=== PATIENT | female | born 1940 | race Caucasian/White ===

== ENCOUNTER → 2016-10-04 | Outpatient (CLI) | payer BC ==
[~2016-10-04] MED LIST: ACET1TAB84 PO; AMLO-110 PO; AMLO2.5T PO; ASPI81TA28 PO; ATV5X PO; CHOL100010 PO; FLUO10CA48 PO; PRMVC TOP; SIMV-151 PO
[2016-10-04 11:28] LABS: ESTIMATED AVERAGE GLUCOSE 108 mg/dl; HA1C FLAG Normal (Normal)
[2016-10-04 11:36] LABS: ALT/SGPT 25 U/L (12-78); AST/SGOT 19 U/L (15-37); BLOOD UREA NITROGEN 16 mg/dl (7-18); BUN/CREATININE RATIO 24.6 (10-20); CALCIUM 9.5 mg/dl (8.5-10.1); CARBON DIOXIDE 25 mmol/L (21-32); CHLORIDE 106 mmol/L (98-107); CHOLESTEROL 242 mg/dl (0-200); CHOLESTEROL/HDL RATIO 2.6; CREATININE 0.67 mg/dl (0.60-1.20); GLUCOSE 89 mg/dl (70-99); HDL CHOLESTEROL 92 mg/dl; POTASSIUM 3.8 mmol/L (3.5-5.1); SODIUM 141 mmol/L (136-145)
[2016-10-04 11:37] LABS: LDL CHOLESTEROL CALCULATED 120 mg/dl; TRIGLYCERIDES 149 mg/dl (0-150); VERY LOW DENSITY LIPOPROT CALC 30 mg/dl
[2016-10-10 06:50] LABS: ANTI-CENTROMERE AB <1.0 NEG AI (<1.0 NEG); ANTI-SS-A <1.0 NEG AI (<1.0 NEG); ANTI-SS-B <1.0 NEG AI (<1.0 NEG); C1 ESTERASE INHIB TC298 32 mg/dL (21-39); DNA ds CRITHIDIA NEGATIVE (NEGATIVE); MICROSOMAL AB 72 IU/ML (<9); Sm Antibody <1.0 NEG AI (<1.0 NEG)
== END | disposition home or self-care (01) ==
LOC: C.LABBC 07:47
PROVIDERS: ATTEND Internal Medicine Pulmonary Disease
DX: E55.9 Vitamin D deficiency, unspecified (principal); R73.09 Other abnormal glucose; E78.5 Hyperlipidemia, unspecified; I10 Essential (primary) hypertension; T78.3XXA Angioneurotic edema, initial encounter; X58.XXXA Exposure to other specified factors, initial encounter

== ENCOUNTER → 2016-11-05 | Outpatient (CLI) | payer BC ==
[2016-11-05 14:55] LABS: BLOOD UREA NITROGEN 18 mg/dl (7-18); BUN/CREATININE RATIO 23.4 (10-20); CALCIUM 9.2 mg/dl (8.5-10.1); CARBON DIOXIDE 28 mmol/L (21-32); CHLORIDE 103 mmol/L (98-107); CREATININE 0.76 mg/dl (0.60-1.20); GLUCOSE 94 mg/dl (70-99); POTASSIUM 3.7 mmol/L (3.5-5.1); SODIUM 141 mmol/L (136-145)
== END | disposition home or self-care (01) ==
LOC: C.LAB1850 13:09
PROVIDERS: ATTEND Internal Medicine
DX: I10 Essential (primary) hypertension (principal)

== ENCOUNTER → 2017-04-02 | Outpatient (CLI) | payer BC ==
--- NOTE | 2017-04-02 15:39 | MAMMOGRAPHY REPORT ---
BILATERAL DIGITAL SCREENING MAMMOGRAM WITH CAD: 04/02/2017 CLINICAL HISTORY: Routine screening. Patient has no complaints. TECHNIQUE: Bilateral CC and MLO views were obtained. Current study was also evaluated with a Compute r Aided Detection (CAD) system. COMPARISON: Comparison is made to exams dated: 03/20/2016 mammogram, 03/17/2015 mammogram, 03/16/2014 m ammogram, 03/10/2013 mammogram, 03/07/2012 mammogram, and 03/06/2011 mammogram - [facility]. BREAST COMPOSITION: The tissue of both breasts is heterogeneously dense, which may obscure small mas ses. FINDINGS: There are scattered stable benign-appearing round and punctate microcalcifications. Minima l vascular calcification in the breasts. No suspicious mass, architectural distortion or cluster of suspicious microcalcifications is seen. IMPRESSION: ACR BI-RADS CATEGORY 1: NEGATIVE There is no mammographic evidence of malignancy. A 1 year screening mammogram is recommended. The pa tient will receive written notification of the results. Approximately 10% of breast cancers are not detected with mammography. A negative mammographic report should not delay biopsy if a clinically suggestive mass is present. Marquita Lui M.D. ay/:04/02/2017 15:06:17 Machine Feeder Raw Stock: Elida ELY(R)(M), [facility] letter sent: Normal 1/2 BI-RADS Code: ACR BI-RADS Category 1: Negative
== END | disposition home or self-care (01) ==
LOC: C.MAMM 09:20
PROVIDERS: ATTEND Internal Medicine
DX: Z12.31 Encounter for screening mammogram for malignant neoplasm of breast (principal)

== ENCOUNTER → 2017-06-12 | Outpatient (CLI) | payer BC ==
[2017-06-12 11:27] LABS: ALT/SGPT 18 U/L (12-78); AST/SGOT 10 U/L (15-37); BLOOD UREA NITROGEN 13 mg/dl (7-18); BUN/CREATININE RATIO 21.5 (10-20); CALCIUM 9.1 mg/dl (8.5-10.1); CARBON DIOXIDE 30 mmol/L (21-32); CHLORIDE 103 mmol/L (98-107); CREATININE 0.62 mg/dl (0.60-1.20); GLUCOSE 89 mg/dl (70-99); POTASSIUM 3.9 mmol/L (3.5-5.1); SODIUM 139 mmol/L (136-145)
[2017-06-12 11:30] LABS: CHOLESTEROL 219 mg/dl (0-200); CHOLESTEROL/HDL RATIO 2.5; HDL CHOLESTEROL 87 mg/dl; LDL CHOLESTEROL CALCULATED 110 mg/dl; TRIGLYCERIDES 110 mg/dl (0-150); VERY LOW DENSITY LIPOPROT CALC 22 mg/dl
[2017-06-12 12:18] LABS: ESTIMATED AVERAGE GLUCOSE 120 mg/dl; HA1C FLAG Normal (Normal)
== END | disposition home or self-care (01) ==
LOC: C.LABBC 07:57
PROVIDERS: ATTEND Internal Medicine
DX: R73.03 Prediabetes (principal); E78.5 Hyperlipidemia, unspecified; E55.9 Vitamin D deficiency, unspecified

== ENCOUNTER → 2017-12-16 | Outpatient (CLI) | payer BC ==
[~2017-12-16] MED LIST changes: +CYM/30 PO; -FLUO10CA48 PO
[2017-12-16 11:57] LABS: HEMOGLOBIN A1C 5.7 % (4.5-5.6)
[2017-12-16 12:00] LABS: ALT/SGPT 17 U/L (12-78); AST/SGOT 10 U/L (15-37); BLOOD UREA NITROGEN 18 mg/dl (7-18); CALCIUM 9.5 mg/dl (8.5-10.1); CARBON DIOXIDE 29 mmol/L (21-32); CHOLESTEROL 206 mg/dl (0-200); GLUCOSE 94 mg/dl (70-99); POTASSIUM 3.7 mmol/L (3.5-5.1); SODIUM 137 mmol/L (136-145)
[2017-12-16 12:06] LABS: LDL CHOLESTEROL CALCULATED 101 mg/dl
== END | disposition home or self-care (01) ==
LOC: C.LABBC 07:43
PROVIDERS: ATTEND Internal Medicine
DX: R73.9 Hyperglycemia, unspecified (principal); E78.5 Hyperlipidemia, unspecified; E55.9 Vitamin D deficiency, unspecified

== ENCOUNTER 2019-06-05 08:23 | Inpatient (IN) ==
--- NOTE | 2019-05-14 08:43 | Anesthesiology Consultation ---
Date of Service May 14, 2019 History Surgery Operation Date: 06/05/19 11:30 Proposed Procedures p Left Anterior Total Hip Arthroplasty - Cricket Barrera DO Height/Weight Height: 5 ft 1 in Weight: 68.492 kg Allergies Allergy/AdvReac Type Severity Reaction Status Date / Time prednisone AdvReac Intermediate hyperactivi Verified 05/14/19 08:41 ty erythromycin base AdvReac Unknown GI symptoms Verified 05/14/19 08:41 Medications Home Medications Medication Instructions Recorded Confirmed Last Taken valsartan-hydrochlorothiazide 0.5 tab PO QAM 07/19/18 05/13/19 11/18/18 07:00 [Diovan HCT] acetaminophen [Acetaminophen Extra 1,000 mg PO Q6H PRN 10/31/18 05/13/19 11/17/18 18:00 Strength] ascorbic acid (vitamin C) [Vitamin 1 g PO QAM 10/31/18 05/13/19 11/17/18 18:00 C] duloxetine 30 mg capsule,delayed 30 mg PO QAM #90 cap 04/01/19 05/13/19 Unknown release simvastatin 20 mg tablet 20 mg PO QPM #90 tab 04/16/19 05/13/19 Unknown cholecalciferol (vitamin D3) 1,000 2,000 units PO BID cap 04/27/19 05/13/19 Unknown unit capsule lorazepam 0.5 mg tablet 0.5 mg PO DAILY PRN #30 tab 04/27/19 05/13/19 Unknown aspirin 81 mg PO Q2D 05/13/19 05/13/19 Unknown valsartan 40 mg PO QAM 05/13/19 05/13/19 Unknown Past Medical History Medical History Osteopenia Postmenopausal bleeding Neurogenic claudication due to lumbar spinal stenosis Lumbago Osteoarthritis Lumbar spinal stenosis s/p epidural steroid injections Hyperlipidemia Hypertension Anxiety Past Surgical History Surgical History S/P cataract extraction Bilateral History of lumbar surgery L3-L5 decompression H/O eye surgery Left eye muscle repair (unknown which muscle was involved) Social History Smoking Status: Never smoker Do You Dip or Chew Tobacco: No Hx Alcohol Use: Yes Alcohol type: wine alcohol intake frequency: 0-2 drinks per day Hx Substance Use: No substance use type: does not use
--- NOTE | 2019-05-14 13:23 | Anesthesiology Consultation ---
Date of Service May 14, 2019 Assessment & Plan (1) Encounter for pre-operative examination: Chart Review Chart Review: Acceptable Risk for Surgery and Patient seen in Pre Admission Testing Teaching & Discussion Instructed NPO after midnight before surgery, except medications with 15 cc of water. Medication instructions provided according to the PAT guidelines. History Surgery Operation Date: 06/05/19 11:30 Proposed Procedures p Left Anterior Total Hip Arthroplasty - Cricket Barrera DO Height/Weight Height: 5 ft 1 in Weight: 69.4 kg Allergies Allergy/AdvReac Type Severity Reaction Status Date / Time prednisone AdvReac Intermediate hyperactivi Verified 05/14/19 08:41 ty erythromycin base AdvReac Unknown GI symptoms Verified 05/14/19 08:41 Medications Home Medications Medication Instructions Recorded Confirmed Last Taken valsartan-hydrochlorothiazide 0.5 tab PO QAM 07/19/18 05/13/19 11/18/18 07:00 [Diovan HCT] acetaminophen [Acetaminophen Extra 1,000 mg PO Q6H PRN 10/31/18 05/13/19 11/17/18 18:00 Strength] ascorbic acid (vitamin C) [Vitamin 1 g PO QAM 10/31/18 05/13/19 11/17/18 18:00 C] duloxetine 30 mg capsule,delayed 30 mg PO QAM #90 cap 04/01/19 05/13/19 Unknown release simvastatin 20 mg tablet 20 mg PO QPM #90 tab 04/16/19 05/13/19 Unknown cholecalciferol (vitamin D3) 1,000 2,000 units PO BID cap 04/27/19 05/13/19 Unknown unit capsule lorazepam 0.5 mg tablet 0.5 mg PO DAILY PRN #30 tab 04/27/19 05/13/19 Unknown aspirin 81 mg PO Q2D 05/13/19 05/13/19 Unknown valsartan 40 mg PO QAM 05/13/19 05/13/19 Unknown Past Medical History Medical History Osteopenia Postmenopausal bleeding Neurogenic claudication due to lumbar spinal stenosis Lumbago Osteoarthritis Lumbar spinal stenosis s/p epidural steroid injections Hyperlipidemia Hypertension Anxiety Exercise / Class Metabolic Activity II 4-5 Yardwork/Stairs/Walk up hill (Denies CP or SOB with 1 FOS, using cane for stability.) Past Surgical History Surgical History S/P cataract extraction Bilateral History of lumbar surgery minimally invasive L3-L5 decompression: 11/18/18: MAC sedation H/O eye surgery Left eye muscle repair (unknown which muscle was involved) Past Anesthesia History No Hx of Anesthesia Complications and No Family Hx of Anesthesia Complications History of PONV No Hx of PONV and No Hx of Motion Sickness Social History Smoking Status: Never smoker Do You Dip or Chew Tobacco: No Hx Alcohol Use: Yes Alcohol type: wine alcohol intake frequency: 0-2 drinks per day Hx Substance Use: No substance use type: does not use Review of Systems Pt denies any recent chest pain, shortness of breath, palpitations, cough, fever or URI. Physical Exam Vital Signs BP: 144/79 (pt states usually 120s systolic, is very nervous today) P: 96bpm SPO2: 98% RA T: 98.1 F R: 16 ENMT Mouth: + dental restorations (few crowns); no chipped teeth and no loose teeth Thyromental Distance: > or= 3.5 Finger Breadths (3.5) Mallampati Class: II Neck normal visual inspection; neck extension not limited Respiratory normal respiratory effort Auscultation: lungs clear to auscultation bilaterally Cardiovascular Rate/Rhythm: regular rate and regular rhythm (borderline tachy) Heart Sounds: no murmur Vessels: no carotid bruit Extremities: no edema Testing Laboratory Results 05/14/19 13:34 05/14/19 13:34 PT 10.2 Seconds (9.0-12.0) 05/14/19 13:34 INR 1.0 (0.9-1.1) 05/14/19 13:34 APTT 24.5 Seconds (21.0-31.0) 05/14/19 13:34 Blood Type A Positive 05/14/19 13:34 Antibody Screen NEGATIVE 05/14/19 13:34 Electrocardiogram Date: 07/19/18 Findings: + NSR @ (66) Left axis deviation. Minimal voltage criteria for LVH, maybe normal variant. Compared with EKG of 01/17/2016, no significant change. Chest X-Ray Date: 07/19/18 Findings: + NAD Echocardiogram Date: 08/20/18 EF: 55-60% Left ventricular size, thickness and function are normal. No regional wall motion of normalities noted. Grade 1 diastolic dysfunction. No significant valvular pathology.
[2019-05-14 16:25] LABS: Basophils # (auto) 0.02 K/uL (0-0.2); Basophils % (auto) 0.3 %; Eosinophils # (auto) 0.21 K/uL (0-0.5); Eosinophils % (auto) 2.9 %; Hematocrit (blood only) 34.9 % (37-47); Hemoglobin 12.1 g/dL (12.0-16.0); Immature Granulocytes # (auto) 0.01 K/uL (0.00-0.02); Immature Granulocytes % (auto) 0.1 %; Lymphocytes # (auto) 2.37 K/uL (1.2-3.4); Lymphocytes % (auto) 32.2 %; Mean Corpuscular Hgb Conc 34.7 g/dL (32-36); Mean Corpuscular Volume 88.8 fL (80-100); Monocytes # (auto) 0.57 K/uL (0.11-0.59); Monocytes % (auto) 7.8 %; Neutrophils # (auto) 4.17 K/uL (1.4-6.5); Neutrophils % (auto) 56.7 %; Platelet Count 428 K/uL (130-400); RDW Coefficient of Variation 13.3 % (11.5-14.5); RDW Standard Deviation 43.1 fL (36.4-46.3); Red Blood Count 3.93 M/uL (4.2-5.4); White Blood Count 7.35 K/uL (4.8-10.8)
[2019-05-14 16:37] LABS: Partial Thromboplastin Ratio 0.9; Partial Thromboplastin Time 24.5 Seconds (21.0-31.0); Prothrombin Time 10.2 Seconds (9.0-12.0)
[2019-05-14 17:21] LABS: BUN Creatinine Ratio 28.4 (10-20); Calcium 9.5 mg/dl (8.5-10.1); Creatinine Clr Calc Pharmacy 52.8 ml/min; Est GFR (African American) 85.1; Est GFR (Non-African American) 73.4; Potassium 3.4 mmol/L (3.5-5.1)
--- NOTE | 2019-06-05 06:31 | History & Physical Report ---
Date of Service June 05, 2019 Assessment & Plan (1) Osteoarthritis of left hip: We will proceed with a left anterior total hip arthroplasty. Postoperatively she will be placed on aspirin for DVT prophylaxis. She will be kept overnight in the hospital for postoperative medical management. She plans to use energy physical therapy upon discharge. Present on Admission?: Yes History of Present Illness Chief Complaint: Primary osteoarthritis of the left hip Primary Care Provider: Vitaly Armenta MD Azalia is a pleasant 78-year-old female who is been dealing with chronic increasing left hip and groin pain. X-rays and clinical examination have been diagnostic for severe osteoarthritis of the left hip. She uses a cane because of her left hip pain. She has trouble walking any long distances. After extensive discussions in the office, she has elected to proceed with a left total hip arthroplasty. Allergies Allergy/AdvReac Type Severity Reaction Status Date / Time prednisone AdvReac Intermediate hyperactivi Verified 05/14/19 08:41 ty erythromycin base AdvReac Unknown GI symptoms Verified 05/14/19 08:41 Home Medications Home Medications Medication Instructions Recorded Confirmed Type valsartan-hydrochlorothiazide 0.5 tab PO QAM 07/19/18 05/13/19 History [Diovan HCT] acetaminophen [Acetaminophen Extra 1,000 mg PO Q6H PRN 10/31/18 05/13/19 History Strength] ascorbic acid (vitamin C) [Vitamin 1 g PO QAM 10/31/18 05/13/19 History C] duloxetine 30 mg capsule,delayed 30 mg PO QAM #90 cap 04/01/19 05/13/19 Rx release simvastatin 20 mg tablet 20 mg PO QPM #90 tab 04/16/19 05/13/19 Rx cholecalciferol (vitamin D3) 1,000 2,000 units PO BID cap 04/27/19 05/13/19 History unit capsule lorazepam 0.5 mg tablet 0.5 mg PO DAILY PRN #30 tab 04/27/19 05/13/19 History aspirin 81 mg PO Q2D 05/13/19 05/13/19 History valsartan 40 mg PO QAM 05/13/19 05/13/19 History Past Med/Surg History Medical History Osteopenia Postmenopausal bleeding Neurogenic claudication due to lumbar spinal stenosis Lumbago Osteoarthritis Lumbar spinal stenosis s/p epidural steroid injections Hyperlipidemia Hypertension Anxiety Surgical History S/P cataract extraction Bilateral History of lumbar surgery minimally invasive L3-L5 decompression: 11/18/18: MAC sedation H/O eye surgery Left eye muscle repair (unknown which muscle was involved) Social History Preferred Language: Indonesian Communication Ability: Effective Visual Impairment: No Limitations Hearing Ability: Normal 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 Second Required: No Beliefs That Will Affect Care: None marital status: Current Living Situation: Spouse current occupational status: retired Feels Safe at Home: Yes Smoking Status: Never smoker Second Hand Exposure: No ; Hx Alcohol Use: Yes Alcohol type: wine Hx Substance Use: No Seatbelt Use: always Review of Systems All systems reviewed & are unremarkable except as noted in HPI & below Physical Exam Constitutional: WD/WN, vitals as above Eyes: PERRL, conjunctivae normal, anicteric sclerae ENMT: external ear and nose normal, oropharynx normal Neck: trachea midline, no thyromegaly Respiratory: normal respiratory effort Cardiovascular: RRR, no murmur, no edema Gastrointestinal (Abdomen): normal bowel sounds, soft, nontender, no hepatosplenomegaly Musculoskeletal: Physical examination of the left hip reveals decreased range of motion with flexion, internal and external rotation. There is significant groin pain with forced internal rotation of the hip his leg lengths are essentially equal. Psychiatric: A+Ox3, euthymic affect Results & Data Diagnostic Findings Radiographs of the left hip and pelvis demonstrate advanced osteoarthritis with joint space narrowing osteophyte formation and [id number] articulation.
[~2019-06-05 08:23] MED LIST changes: -ACET1TAB84 PO; +ACETAMINOPHEN 500 MG TAB PO SCH; -AMLO-110 PO; -AMLO2.5T PO; -ASPI81TA28 PO; -ATV5X PO; +BUPIVACAINE 0.5 % 5 MG/1 ML PF 10ML VIAL ONE; +CEFAZOLIN 1000MG 1,000 MG/7.5 ML SYR IV SCH; -CHOL100010 PO; -CYM/30 PO; +FAMOTIDINE 20 MG TAB PO SCH; +GABAPENTIN 300 MG CAP PO SCH; +LIDOCAINE HCL 2% 2 ML VIAL/AMP(20MG/ML) INFIL ONE; +LR 500ML BOLUS, THEN 15ML/HR IV SCH; +LR 60ML/HR IV SCH; +MIDAZOLAM HCL 1 MG/ML 2ML VIAL ONE; -PRMVC TOP; +PROPOFOL IV EMULSION 10 MG/ML 20 ML VIAL IV ONE; +ROPIVACAINE 0.5% HCL/PF 150 MG, BUPIVACAINE 0.5% MPF 30 ML, EPINEPHrine 30MG/30ML (OR U... INFIL SCH; -SIMV-151 PO; +TRANEXAMIC ACID 1,000 MG **IV Intra-op IV SCH; +TRANEXAMIC ACID 1,000 MG **IV Pre-op IV SCH; +fentaNYL citrate 100 MCG/2 ML VIAL ONE
--- NOTE | 2019-06-05 08:29 | History & Physical Bridge Note ---
Date of Service June 05, 2019 History & Physical Bridge Note I have examined the patient, reviewed the History & Physical and in the interval since the performance of the History & Physical I have noted the following changes of clinical significance: no changes noted
[2019-06-05] MEDS ORDERED: ORTHO JOINT ANESTHETIC ONE (08:56)
[2019-06-05] MEDS ORDERED: ONDANSETRON INJ 2 MG/ML 2 ML VIAL IV PRN ×2 (10:06→13:08)
[2019-06-05] MEDS ORDERED: ATROPINE SULFATE 0.1 MG/ML 10ML SYR IV PRN (10:06)
[2019-06-05] MEDS ORDERED: ePHEDrine sulfate 50 MG/ML AMP IV PRN (10:06)
[2019-06-05] MEDS ORDERED: HYDROmorphone INJ 1 MG/ML SYRINGE IV PRN (10:06)
[2019-06-05] MEDS ORDERED: fentaNYL citrate 100 MCG/2 ML VIAL IV PRN (10:06)
[2019-06-05] MEDS ORDERED: GLYCOPYRROLATE 0.2 MG/ML VIAL ONE (10:29)
[2019-06-05] MEDS ORDERED: ROCURONIUM BROMIDE 10 MG/ML 5 ML VIAL ONE (10:29)
[2019-06-05] MEDS ORDERED: HYDROmorphone INJ 2 MG/ML SYR/VIAL ONE (10:29)
[2019-06-05] MEDS ORDERED: DEXAMETHASONE SOD INJ 4 MG/ML VIAL ONE (10:29)
[2019-06-05] MEDS ORDERED: NEOSTIGMINE METHYLSULFATE 5 MG/5 ML SYR ONE (10:29)
[2019-06-05] MEDS ORDERED: ONDANSETRON INJ 2 MG/ML 2 ML VIAL ONE (10:29)
[2019-06-05] MEDS ORDERED: ePHEDrine sulfate 50 MG/ML SYR ONE (10:33)
[2019-06-05] MEDS ORDERED: PHENYLEPHRINE 100MCG/ML 5ML SYR ONE (10:33)
--- NOTE | 2019-06-05 11:28 | Operative Report ---
Post Operative Report Pre & Post Diagnosis Operation Date: 06/05/19 10:20 Pre-Op Diagnosis: Left Hip Primary Osteoarthritis Post-Op Diagnosis: Left Hip Primary Osteoarthritis Procedure Operation Date: 06/05/19 10:20 Actual Procedures p Left Anterior Total Hip Arthroplasty--Uncemented(Left) - Cricket Barrera DO Surgeon Cricket Barrera DO Wind Operations Supervisor Cricket Carr PAC Estimated Blood Loss 200 Findings Consistent with Post-Op Diagnosis Specimens Left femoral head Complications none Disposition Disposition: Recovery Room Indications Patient is a pleasant 78-year-old female who presented my office with chronic increasing left hip pain. X-rays and clinical examination were diagnostic for advanced osteoarthritis of the left hip. After failing conservative treatment, she elected to proceed with a left anterior total hip arthroplasty. Description of Procedure Implants used Biomet Taperloc total hip arthroplasty system with a size 8 high offset Taperloc stem, a 52 mm G7 cup with a 25mm screw, an E1 polyethylene liner, a 36 mm ceramic head with a -3 neck. Patient arrived at the hospital for the above procedure. They were seen in the preoperative holding area and the operative extremity was identified and signed. They were given a spinal anesthetic. They were given a preoperative antibiotic and TXA. They were taken back To the operating room and laid on the table in the supine position. The leg was brought out through a Puristst leg positioner. The hip was then prepped and draped in sterile fashion. A timeout was done and the patient in upper extremities properly identified. An anterior approach was used. Dissection was taken down through the fascia and the tensor muscle belly was retracted laterally and the rectus was retracted medially. The circumflex vessels were identified and ligated. The capsule was then incised and tagged for later repair. The femoral neck was then cut and the femoral head was removed. The acetabulum was exposed. Time was spent doing a complete circumferential labral release. Sequential reaming of the acetabulum up to a size 51 reamer was done. Final reamings were done under fluoroscopy to ensure appropriate version. A Biomet 52 mm G7 cup was then impacted into place. A single 25 mm screw was placed. The E1 polyethylene liner was then snapped into place. Surrounding soft tissues were then injected with 100 cc of an orthopedic pain control cocktail. The proximal femur was then exposed. Sequential broaching up to a size 8 broach was done. Off that broach a size 36 head with a -3 neck was trialed. The hip was reduced and fluoroscopic images showed anatomic alignment of the implants in acceptable length. The broach was removed. The final size 8 high offset Taperloc stem was then impacted into place. A ceramic 36 mm head with a -3 neck was then impacted into place in the hip was reduced. Final fluoroscopic images showed anatomic reduction of the hip. The capsule was then closed with #1 Vicryl suture. A dilute betadyne lavage was then done for 3 minutes. The joint was then irrigated with normal saline solution. The fascia was closed with #1 PDS suture. Skin was closed with 2-0 Vicryl, parker, and a Nikky VAC dressing. The patient was then transferred to a hospital bed and taken to the post anesthesia care unit in stable condition. They tolerated the procedure well. I attest to the content of the Intraoperative Record and any orders documented therein. Any exceptions are noted below.
--- NOTE | 2019-06-05 11:50 | Fluoroscopy Report ---
INTRAOPERATIVE RADIOGRAPHS CLINICAL HISTORY: Left hip arthroplasty. Fluoroscopy time: 25 seconds. FINDINGS: 2 spot fluoroscopic views of the left hip from an arthroplasty procedure are presented. The initial image shows surgical absence of the left femoral head with the acetabular cup in place. This is transfixed by a single cortical lag screw. The second image shows a left hip arthroplasty in near anatomic alignment. There is no evidence of fracture on these fluoroscopic views. IMPRESSION: Intraoperative images from a left hip arthroplasty procedure as above. Electronically signed by: Adolph Martinez M.D. 06/05/2019 11:48 AM
--- NOTE | 2019-06-05 12:23 | XRay Report ---
XR hip 1V LT w pelvis CLINICAL HISTORY: IN PACU - A/P PELVIS and LATERAL HIP COMPARISON: 04/10/2019 DISCUSSION: Anatomic alignment posttotal left hip arthroplasty. Could contact between prosthetic and underlying bone. Expected soft tissue postoperative change IMPRESSION: Anatomic alignment posttotal left hip arthroplasty. The above report was generated using voice recognition software. It may contain grammatical, syntax or spelling errors. Electronically signed by: Jona James M.D. 06/05/2019 12:22 PM
--- NOTE | 2019-06-05 12:51 | Anesthesiology Progress Note ---
Date of Service June 05, 2019 Anesthesia Post Procedure Vital Signs Vital Signs: Temp Pulse Pulse Resp BP Pulse Ox 06/05/19 12:45 79 15 111/52 L 100 06/05/19 12:30 36.3 C L 69 14 112/54 L 100 06/05/19 12:20 75 15 110/52 L 100 06/05/19 12:10 76 12 105/56 L 100 06/05/19 12:00 36.6 C 78 21 107/49 L 97 06/05/19 09:16 36.7 C 88 18 168/84 H 98 Pain Intensity Left Hip: Pain Intensity: 0 Transfer of Care Handoff Completed per policy Notes Mental Status: alert / awake / arousable Patient Amnestic to Procedure: Yes Nausea / Vomiting: adequately controlled Pain: adequately controlled Airway Patency, RR, SpO2: stable & adequate BP & HR: stable & adequate Hydration State: stable & adequate Anesthetic Complications: no major complications apparent
[2019-06-05] MEDS ORDERED: OXYCODONE HCL IR 5 MG TAB (IMMEDIATE RELEASE) PO PRN (13:08)
[2019-06-05] MEDS ORDERED: BISACODYL 10 MG SUPP PR PRN (13:08)
[2019-06-05] MEDS ORDERED: HYDROmorphone INJ 0.5 MG/0.5 ML SYR IV PRN (13:08)
[2019-06-05] MEDS ORDERED: METOCLOPRAMIDE HCL INJ 5 MG/ML 2 ML VIAL IV PRN (13:08)
[2019-06-05] MEDS ORDERED: NALOXONE HCL 0.4 MG/1 ML VIAL/CARP IV PRN (13:08)
[2019-06-05] MEDS ORDERED: MAGNESIUM HYDROXIDE SUSP 30 ML UDC PO PRN (13:08)
[2019-06-05] MEDS: SODIUM CHLORIDE 0.9% 1000ML 1,000 ML IV SCH (14:16)
[2019-06-05] MEDS: KETOROLAC TROMETHAMINE 15 MG/ML VIAL IV SCH ×2 (14:16→21:42)
[2019-06-05] MEDS: ACETAMINOPHEN 500 MG TAB PO SCH ×2 (14:16→21:42)
[2019-06-05] MEDS: CEFAZOLIN 2000MG 2,000 MG/15 ML SYR IV SCH (18:33)
[2019-06-05] MEDS ORDERED: SIMVASTATIN 20 MG TAB PO SCH (21:00)
[2019-06-05] MEDS ORDERED: SENNA 8.6 MG TAB PO SCH (21:00)
[2019-06-05] MEDS: DOCUSATE SODIUM 100 MG CAP PO SCH (21:42)
[2019-06-06] MEDS: SODIUM CHLORIDE 0.9% 1000ML 1,000 ML IV SCH (00:30)
[2019-06-06] MEDS: KETOROLAC TROMETHAMINE 15 MG/ML VIAL IV SCH ×2 (02:25→08:49)
[2019-06-06] MEDS: CEFAZOLIN 2000MG 2,000 MG/15 ML SYR IV SCH (02:26)
[2019-06-06 06:02] LABS: Hematocrit (blood only) 28.3 % (37-47); Hemoglobin 9.8 g/dL (12.0-16.0); Immature Granulocytes # (auto) 0.03 K/uL (0.00-0.02); Immature Granulocytes % (auto) 0.3 %; Lymphocytes # (auto) 1.26 K/uL (1.2-3.4); Lymphocytes % (auto) 11.2 %; Mean Corpuscular Hgb Conc 34.6 g/dL (32-36); Mean Corpuscular Volume 89.8 fL (80-100); Mean Platelet Volume 8.3 fL (7.4-10.4); Monocytes # (auto) 0.86 K/uL (0.11-0.59); Monocytes % (auto) 7.6 %; Neutrophils # (auto) 9.14 K/uL (1.4-6.5); Neutrophils % (auto) 80.9 %; Platelet Count 293 K/uL (130-400); RDW Coefficient of Variation 13.7 % (11.5-14.5); RDW Standard Deviation 44.8 fL (36.4-46.3); Red Blood Count 3.15 M/uL (4.2-5.4); White Blood Count 11.29 K/uL (4.8-10.8)
[2019-06-06] MEDS: ACETAMINOPHEN 500 MG TAB PO SCH (06:21)
[2019-06-06 06:33] LABS: BUN Creatinine Ratio 30.3 (10-20); Calcium 8.3 mg/dl (8.5-10.1); Creatinine Clr Calc Pharmacy 53.8 ml/min; Est GFR (African American) 87.9; Est GFR (Non-African American) 75.8
[2019-06-06] MEDS: DOCUSATE SODIUM 100 MG CAP PO SCH (08:50)
[2019-06-06] MEDS ORDERED: VALSARTAN 80 MG TAB PO SCH (09:00)
[2019-06-06] MEDS ORDERED: DULOXETINE HCL 30 MG CAP PO SCH (09:00)
[2019-06-06] MEDS ORDERED: hydroCHLOROthiazide 25 MG TAB PO SCH (09:00)
[2019-06-06] MEDS ORDERED: MULTIVITAMIN TAB PO SCH (09:00)
[2019-06-06] MEDS ORDERED: VALSARTAN/HCTZ 80/12.5MG TAB PO SCH (09:00)
--- NOTE | 2019-06-06 09:20 | Orthopedic Progress Note ---
Date of Service June 06, 2019 Assessment & Plan (1) Osteoarthritis of left hip: Overall she is doing very well. She is not having much pain in the left hip. She has been up and ambulating already. She will be seen by physical therapy today for ambulation and range of motion exercises. She can be discharged home later today. She will follow-up with orthopedics in 2 weeks. Present on Admission?: Yes Andrzej Vieyra was seen and examined at bedside this morning. Overall she is doing very well. She is not having much pain in the left hip. She has been happy with her progress. She has no complaints. Physical Exam Musculoskeletal: Physical examination of the left hip, the Nikky VAC dressing is intact. Leg lengths are equal. She is active dorsiflexion and plantarflexion of her left ankle. Results & Data Vital Signs (Past 12 Hours) Vital Signs Temp Pulse Resp BP Pulse Ox 06/06/19 08:15 36.6 C 79 18 113/70 97 06/06/19 02:46 36.6 C 83 16 103/63 93 06/05/19 22:54 36.7 C 107 H 18 105/61 95 Laboratory Results H & H 05/14/19 06/06/19 Range/Units 13:34 05:45 Hgb 12.1 9.8 L (12.0-16.0) g/dL Hct 34.9 L 28.3 L (37-47) % Coagulation 05/14/19 Range/Units 13:34 INR 1.0 (0.9-1.1) Diagnostic Findings On postoperative x-rays of her left hip, the prosthesis is in anatomic alignment without any evidence of fracture, dislocation, or loosening. PG Care Time/CCT Total # of Minutes Spent Total Time Spent with Patient: Total time spent is greater than 50% in coordination of care (as documented) at patient's floor/unit and/or counseling patient:
--- NOTE | 2019-06-06 09:21 | Discharge Summary ---
Date of Service June 06, 2019 Admission HPI Per Admitting Provider Azalia is a pleasant 78-year-old female who is been dealing with chronic increasing left hip and groin pain. X-rays and clinical examination have been diagnostic for severe osteoarthritis of the left hip. She uses a cane because of her left hip pain. She has trouble walking any long distances. After extensive discussions in the office, she has elected to proceed with a left total hip arthroplasty. Principal Diagnosis Left total hip arthroplasty Discharge Data Allergies Allergy/AdvReac Type Severity Reaction Status Date / Time prednisone AdvReac Intermediate hyperactivi Verified 06/05/19 08:45 ty erythromycin base AdvReac Unknown GI symptoms Verified 06/05/19 08:45 Consultations 06/06/19 08:00 Consult Case Management - Discharge Planning Routine Procedures Performed Operation Date: 06/05/19 10:20 Actual Procedures p Left Anterior Total Hip Arthroplasty--Uncemented(Left) - Cricket Barrera, Ordered Studies 06/05/19 10:20 FL fluoroscopy <1hr Routine FL hip LT 1V Routine Hospital Course (1) Osteoarthritis of left hip: On June 05, 2019 for a arrived at [facility] and underwent a left anterior total hip arthroplasty without complication. She had a general anesthetic. Postoperatively she was started on aspirin for DVT prophylaxis and discharged to general orthopedic floors. Her hospital course was uneventful. On postop day #1 her H&H was stable and her pain was well controlled. She was able to ambulate well with physical therapy. She was then discharged home. She will follow-up with orthopedics in 2 weeks. Total Time Total Time Spent Total Time Spent (In Minutes): 20 Discharge Plan Discharge Items Patient Disposition: Home - Home Health Services Reason For Visit: Left Hip Degenerative Joint Disease Discharge Diagnosis: Left total hip arthroplasty Activity: As commented below Non-emergency contact: Surgeon Call non-emergency contact if: your wound has increased redness and your wound has increased drainage Follow-up/Referrals: Pro,Vitaly Cardona MD [Primary Care Provider] - Diet: Regular Addtl Attending Provider Instructions: Activity and Therapy Recommendations: * If you are using [facility] then therapy will be provided at your home until they feel you have accomplished all of your goals. * If you are using [facility] then Physical Therapy will be provided until they feel you are ready to start Outpatient Physical Therapy. * If you are not using home therapy then Outpatient Physical Therapy should start about 3-5 days from your day of surgery. Therapy will last about 6-10 weeks * You were shown a series of exercises in the hospital. Do these exercises three times each day including the exercises you were shown in physical therapy. * Get up and walk several times each day.~ For the first four weeks, try not to stand or walk for more than one hour at a time. If you do stand or walk for more than one hour, you will not hurt anything, but your leg will likely swell.~~ * As you feel comfortable, you may change from the walker or crutches to a cane and~then to independent walking. Medications: * Narcotic You will likely be sent home from the hospital with a prescription for the narcotic pain medication that worked best throughout your stay. * Aspirin Most patients will be required to take Aspirin 81mg twice a day for 6 weeks after surgery. This is obtained [id number] and a prescription is not necessary. * Other medications may be prescribed for specific circumstances. If you have any questions, please call the office at . * Resume previous home medications unless otherwise instructed TEDs/Elastic Stockings: The white elastic stockings help limit swelling and prevent blood clots from forming in your legs. The more you wear them, the more they work. Wear them for six weeks. Dressing Care: You will likely have a purple VAC dressing after surgery. This dressing will keep the incision dry and promote early healing. After about 7 days the batteries will wear out and the VAC will lose suction. Simply remove the dressing at that time and throw everything away, including the small suction machine. Then, you may leave the parker open to air or cover them with a dry dressing so they do not rub on your pants. The parker will be removed at your 2 week follow-up appointment. Showering: You may shower immediately with the purple VAC dressing. Let the shower spray hit your opposite side and slowly pat the plastic dry. Do not soak the dressing. After the dressing is removed you may shower normally with the parker exposed. Let soapy water run over the parker and pat them dry. Things To Watch For: * Drainage from the incision site that occurs more than one week after your surgery. * Increased redness at the incision site. * Fever above 102 degrees Fahrenheit. * Unusual chest pain or shortness of breath. * Call [facility] at with any of the above problems Follow-Up Visit: Follow-up with Dr. Barrera 2-3 weeks after your day of surgery. An appointment was probably scheduled when you signed-up for surgery in the office. If you have any questions call Office Instructions: More detailed instructions as well as Frequently Asked Questions were provided in a folder by our office when you signed-up for surgery. Please review these instructions when you get home. If you have any further questions or concerns, please feel free to call the office at [phone] Pending Studies at Discharge: No Stand-Alone Forms: My [facility] Medications and DC Order Prescriptions: New hydrocodone-acetaminophen 5-325 mg tablet 1 tab PO Q6H PRN (Reason: pain) Qty: 20 RF: 0 Continued duloxetine [Cymbalta] 30 mg capsule,delayed release(DR/EC) 30 mg PO QAM Qty: 90 RF: 0 simvastatin [Zocor] 20 mg tablet 20 mg PO QPM Qty: 90 RF: 3 cholecalciferol (vitamin D3) 1,000 unit capsule 2,000 units PO BID RF: 0 lorazepam 0.5 mg tablet 0.5 mg PO DAILY PRN (Reason: anxiety) Qty: 30 RF: 0 ascorbic acid (vitamin C) [Vitamin C] 1,000 mg Tablet 1 g PO QAM RF: 0 acetaminophen [Acetaminophen Extra Strength] 500 mg Tablet 1,000 mg PO Q6H PRN (Reason: Pain) RF: 0 valsartan 40 mg tablet 20 mg PO DAILY RF: 0 valsartan-hydrochlorothiazide [Diovan HCT] 80-12.5 mg Tablet 1 tab PO QAM RF: 0 Changed aspirin 81 mg Tablet,Delayed Release (Dr/Ec) 81 mg PO BID Qty: 0 RF: 0 Discharge Orders: Discharge Order (Routine); Ordered 06/06/19 Ordered By: Cricket Barrera Admission Data Admit Date/Time: 06/05/19 11:54 Attending Provider: Cricket Barrera Admit Provider: Cricket Barrera Primary Care Provider: Vitaly Armenta
== END 2019-06-06 12:03 | disposition home or self-care (01) | DRG 470 ==
LOC: ASU 08:23 → 3E 11:54

== ENCOUNTER 2020-04-29 05:17 | Observation (INO) ==
--- NOTE | 2020-04-12 16:36 | PAT Medication Instructions ---
Medication Instructions Date of Service April 12, 2020 Home Medications Medication Instructions Recorded duloxetine 30 mg capsule,delayed 30 mg PO QAM #90 cap 10/06/19 release valsartan 80 mg tablet 80 mg PO DAILY #60 tab 12/10/19 lorazepam 0.5 mg tablet 0.5 mg PO DAILY PRN #30 tab 12/18/19 simvastatin 20 mg tablet 20 mg PO QPM #90 tab 04/05/20 acetaminophen [Acetaminophen Extra Strength] 1,000 mg PO Q6H PRN ascorbic acid (vitamin C) [Vitamin C] 1 g PO QAM duloxetine 30 mg capsule,delayed release 30 mg PO QAM aspirin 81 mg tablet,delayed release 81 mg PO QAM cholecalciferol (vitamin D3) 25 mcg (1,000 unit) capsule 1,000 units PO BID valsartan 80 mg tablet 80 mg PO DAILY lorazepam 0.5 mg tablet 0.5 mg PO DAILY PRN simvastatin 20 mg tablet 20 mg PO QPM DO NOT take the morning of surgery acetaminophen [Acetaminophen Extra Strength] 1,000 mg PO Q6H PRN ascorbic acid (vitamin C) [Vitamin C] 1 g PO QAM cholecalciferol (vitamin D3) 25 mcg (1,000 unit) capsule 1,000 units PO BID valsartan 80 mg tablet 80 mg PO DAILY Take morning of surgery With a small sip of water, OTHERWISE NOTHING TO EAT OR DRINK AFTER MIDNIGHT: duloxetine 30 mg capsule,delayed release 30 mg PO QAM aspirin 81 mg tablet,delayed release 81 mg PO QAM lorazepam 0.5 mg tablet 0.5 mg PO DAILY PRN (if needed) Take evening before surgery acetaminophen [Acetaminophen Extra Strength] 1,000 mg PO Q6H PRN (if needed) cholecalciferol (vitamin D3) 25 mcg (1,000 unit) capsule 1,000 units PO BID lorazepam 0.5 mg tablet 0.5 mg PO DAILY PRN (if needed) simvastatin 20 mg tablet 20 mg PO QPM Other Notes If you have any questions please call us at [phone] or [phone] or [phone] or [phone]
--- NOTE | 2020-04-13 10:18 | Anesthesiology Consultation ---
Date of Service April 13, 2020 Assessment & Plan (1) Encounter for pre-operative examination: COVID Status: As of 04/13 assessment, patient denies travel to endemic area, known exposure/sick contacts, or symptoms of COVID19. Patient instructed that they and their household members must follow strict social distancing guidelines, wear a mask in public and avoid travel for 14 days prior to surgery. Preoperative COVID19 testing to be completed prior to surgery per surgeon's arrangements. Patient made aware to self-isolate as much as possible between COVID testing and surgery. Cardiology office visit 02/09/20 = "79-year-old generally healthy woman with history of recurrent syncope, with circumstances highly suggestive of vasovagal syncope (all episodes occurred while she was on the commode), who is now doing well after discontinuation of her diuretic and reduction in her Cymbalta dosing. She will further reduce Cymbalta from every other day to 3 times a week, with a goal to eventually taper off. Fortunately, her blood pressure is normotensive (b ased on home diary) on valsartan long, she does not need the diuretic component (had previously been on combination valsartan/HCTZ)." Patient had GA for prior STEPHEN (no indication of reason on eval, but patient was 7 months s/p MILD procedure; she recalls being told she should not have spinal block). Discussed risks and benefits of spinal vs general anesthesia. Pt aware will be discussed further AM DOS. Chart Review Chart Review: Acceptable Risk for Surgery and Patient seen in Pre Admission Testing Teaching & Discussion Instructed NPO after midnight before surgery, except medications with 15 cc of water. Medication instructions provided according to the PAT guidelines. History Surgery Operation Date: 04/29/20 07:00 Proposed Procedures p Right Anterior Total Hip Arthroplasty - Cricket Barrera, Height/Weight Height: 5 ft 1 in Weight: 64.3 kg Allergies Allergy/AdvReac Type Severity Reaction Status Date / Time prednisone AdvReac Intermediate hyperactivi Verified 04/06/20 07:59 ty erythromycin base AdvReac Mild GI symptoms Verified 04/06/20 07:59 Medications Home Medications Medication Instructions Recorded Confirmed Last Taken acetaminophen [Acetaminophen Extra 1,000 mg PO Q6H PRN 10/31/18 04/06/20 06/04/19 18:00 Strength] ascorbic acid (vitamin C) [Vitamin 1 g PO QAM 10/31/18 04/06/20 06/04/19 18:00 C] duloxetine 30 mg capsule,delayed 30 mg PO QAM #90 cap 10/06/19 04/06/20 Unknown release aspirin 81 mg tablet,delayed 81 mg PO QAM tab 11/24/19 04/06/20 Unknown release cholecalciferol (vitamin D3) 25 1,000 units PO BID cap 11/24/19 04/06/20 Unknown mcg (1,000 unit) capsule valsartan 80 mg tablet 80 mg PO DAILY #60 tab 12/10/19 04/06/20 Unknown lorazepam 0.5 mg tablet 0.5 mg PO DAILY PRN #30 tab 12/18/19 04/06/20 Unknown simvastatin 20 mg tablet 20 mg PO QPM #90 tab 04/05/20 04/06/20 Unknown Past Medical History Medical History Anxiety Hyperlipidemia Hypertension Lumbago Lumbar spinal stenosis s/p epidural steroid injections and MILD procedure 11/18/18; no injections since Neurogenic claudication due to lumbar spinal stenosis Osteoarthritis Osteopenia Postmenopausal bleeding Varicose veins of both lower extremities (Inactive) Vasovagal syncope Follows with cardio, diuretic was d/c'd, BP has been stable on Valsartan. Exercise / Class Metabolic Activity II 4-5 Yardwork/Stairs/Walk up hill (Denies CP or SOB with 1 FOS, does not do regularly though) Past Family History Family History Mother Family history of diabetes mellitus Congestive heart failure Grandmother No problems noted. Aunt Family history of diabetes mellitus Grandmother (Maternal) Family history of diabetes mellitus Denies family history of Colon cancer Ovarian cancer Prostate cancer Myocardial infarction Breast cancer Past Surgical History Surgical History H/O eye surgery Left eye muscle repair (unknown which muscle was involved) History of lumbar surgery minimally invasive L3-L5 decompression: 11/18/18: MAC sedation History of total hip arthroplasty LEFT, 06/07/19. S/P cataract extraction Bilateral Past Anesthesia History No Hx of Anesthesia Complications and No Family Hx of Anesthesia Complications Pt reports hypotension post-op in the past. History of PONV No Hx of PONV and No Hx of Motion Sickness Social History Smoking Status: Never smoker Do You Dip or Chew Tobacco: No Hx Alcohol Use: Yes Alcohol type: wine alcohol intake frequency: 0-2 drinks per day Alcohol Intake Frequency Comment: 1 GLASS OF WINE DAILY Hx Substance Use: No substance use type: does not use Review of Systems Pt denies any recent chest pain, shortness of breath, palpitations, cough, fever, URI, or uncontrolled acid reflux. Physical Exam Vital Signs BP: 156/99 (pt reports home readings of 140s/60s, usually elevated in medical settings, Dr. Hunt monitoring) P: 78bpm SPO2: 96% RA T: 98.0 F R: 16 ENMT Mouth: + dental restorations (crowns on a few molars); no chipped teeth and no loose teeth Thyromental Distance: > or= 3.5 Finger Breadths (3.5) Mallampati Class: II Neck normal visual inspection; neck extension not limited Respiratory normal respiratory effort Auscultation: lungs clear to auscultation bilaterally Cardiovascular Rate/Rhythm: regular rate and regular rhythm Heart Sounds: no murmur Vessels: no carotid bruit Extremities: no edema Testing Laboratory Results 04/13/20 10:30 04/13/20 10:30 PT 10.7 Seconds (9.0-12.0) 04/13/20 10:30 INR 1.0 (0.9-1.1) 04/13/20 10:30 APTT 25.6 Seconds (21.0-31.0) 04/13/20 10:30 Blood Type A Positive 04/13/20 10:30 Antibody Screen NEGATIVE 04/13/20 10:30 Electrocardiogram Date: 04/13/20 Findings: + NSR @ (74bpm) Chest X-Ray Date: 04/13/20 Findings: + NAD Echocardiogram Date: 08/20/18 EF: 55-60% LV Function: normal RWMA: + none Other Findings: + diastolic dysfunction (Grade I) Valvular Disease: + no significant valvular disease
--- NOTE | 2020-04-13 11:22 | XRay Report ---
XR chest Pre-admission PA/Lat HISTORY: Preop. COMPARISON: Chest 07/19/2018. FINDINGS: The lungs are clear. Cardiac silhouette is normal in size. No pleural effusions. No pneumot horax. IMPRESSION: No acute process. ACT 112: Negative or not required by law. Electronically signed by: Horace Orta M.D. 04/13/2020 11:21 AM
--- NOTE | 2020-04-13 12:47 | Electrocardiogram Report ---
Test Reason : Blood Pressure : / mmHG Vent. Rate : 074 BPM Atrial Rate : 074 BPM P-R Int : 168 ms QRS Dur : 076 ms QT Int : 386 ms P-R-T Axes : 063 -08 052 degrees QTc Int : 428 ms Normal sinus rhythm Normal ECG When compared with ECG of 19-JUL-2018 10:07, QRS duration has decreased Confirmed by Vitaly Coe ([id number]) on 04/13/2020 12:46:45 PM Referred By: Cricket Barrera Confirmed By:Vitaly Coe
[2020-04-13 13:38] LABS: Basophils # (auto) 0.02 K/uL (0-0.2); Basophils % (auto) 0.4 %; Eosinophils # (auto) 0.23 K/uL (0-0.5); Eosinophils % (auto) 4.2 %; Hematocrit (blood only) 37.8 % (37-47); Hemoglobin 12.7 g/dL (12.0-16.0); Immature Granulocytes # (auto) 0.01 K/uL (0.00-0.02); Immature Granulocytes % (auto) 0.2 %; Lymphocytes # (auto) 2.13 K/uL (1.2-3.4); Lymphocytes % (auto) 38.9 %; Mean Corpuscular Hemoglobin 29.3 pg (25-34); Mean Corpuscular Hgb Conc 33.6 g/dL (32-36); Mean Corpuscular Volume 87.1 fL (80-100); Mean Platelet Volume 9.4 fL (7.4-10.4); Monocytes # (auto) 0.44 K/uL (0.11-0.59); Neutrophils # (auto) 2.64 K/uL (1.4-6.5); Neutrophils % (auto) 48.3 %; Platelet Count 360 K/uL (130-400); RDW Coefficient of Variation 13.6 % (11.5-14.5); RDW Standard Deviation 43.5 fL (36.4-46.3); Red Blood Count 4.34 M/uL (4.2-5.4); White Blood Count 5.47 K/uL (4.8-10.8)
[2020-04-13 13:55] LABS: Partial Thromboplastin Ratio 0.9; Partial Thromboplastin Time 25.6 Seconds (21.0-31.0); Prothrombin Time 10.7 Seconds (9.0-12.0)
[2020-04-13 15:33] LABS: BUN Creatinine Ratio 33.5 (10-20); Calcium 9.5 mg/dl (8.5-10.1); Creatinine Clr Calc Pharmacy 62.2 ml/min; Est GFR (African American) 98.7; Est GFR (Non-African American) 85.2
--- NOTE | 2020-04-28 06:43 | History & Physical Report ---
Date of Service April 28, 2020 Assessment & Plan (1) Osteoarthritis of right hip: We will proceed with a right anterior total hip arthroplasty. Postoperatively she will be started on aspirin for DVT prophylaxis and kept overnight in the hospital for postoperative medical management. She plans [facility]. Present on Admission?: Yes History of Present Illness Chief Complaint: Primary osteoarthritis of the right hip Primary Care Provider: Vitaly Armenta MD Azalia is a pleasant 79-year-old female who is been dealing with chronic increasing right hip and groin pain. X-rays and clinical examination have been diagnostic for advanced osteoarthritis of the right hip. After failing conservative treatment, she has elected to proceed with a right anterior total hip arthroplasty. She does have a history of a left hip replacement done a year ago in May 2019. She has done very well with that. Allergies Allergy/AdvReac Type Severity Reaction Status Date / Time prednisone AdvReac Intermediate hyperactivi Verified 04/06/20 07:59 ty erythromycin base AdvReac Mild GI symptoms Verified 04/06/20 07:59 Home Medications Home Medications Medication Instructions Recorded Confirmed Type acetaminophen [Acetaminophen Extra 1,000 mg PO Q6H PRN 10/31/18 04/06/20 History Strength] ascorbic acid (vitamin C) [Vitamin 1 g PO QAM 10/31/18 04/06/20 History C] duloxetine 30 mg capsule,delayed 30 mg PO QAM #90 cap 10/06/19 04/06/20 Rx release aspirin 81 mg tablet,delayed 81 mg PO QAM tab 11/24/19 04/06/20 History release cholecalciferol (vitamin D3) 25 1,000 units PO BID cap 11/24/19 04/06/20 History mcg (1,000 unit) capsule valsartan 80 mg tablet 80 mg PO DAILY #60 tab 12/10/19 04/06/20 Rx simvastatin 20 mg tablet 20 mg PO QPM #90 tab 04/05/20 04/06/20 Rx lorazepam 0.5 mg tablet 0.5 mg PO DAILY PRN #30 tab 04/21/20 Rx Past Med/Surg History Medical History Anxiety Hyperlipidemia Hypertension Lumbago Lumbar spinal stenosis s/p epidural steroid injections and MILD procedure 11/18/18; no injections since Neurogenic claudication due to lumbar spinal stenosis Osteoarthritis Osteopenia Postmenopausal bleeding Varicose veins of both lower extremities (Inactive) Vasovagal syncope Follows with cardio, diuretic was d/c'd, BP has been stable on Valsartan. Surgical History H/O eye surgery Left eye muscle repair (unknown which muscle was involved) History of lumbar surgery minimally invasive L3-L5 decompression: 11/18/18: MAC sedation History of total hip arthroplasty LEFT, 06/07/19. S/P cataract extraction Bilateral Family History Mother Family history of diabetes mellitus Congestive heart failure Grandmother No problems noted. Aunt Family history of diabetes mellitus Grandmother (Maternal) Family history of diabetes mellitus Denies family history of Colon cancer Ovarian cancer Prostate cancer Myocardial infarction Breast cancer Social History Smoking Status: Never smoker Second Hand Exposure: No; Hx Alcohol Use: Yes Alcohol type: wine Hx Substance Use: No Preferred Language: Maltese Communication Ability: Effective Visual Impairment: No Limitations Hearing Ability: Normal Food Or Baggage Handling [place] Required: No Beliefs That Will Affect Care: None marital status: Current Living Situation: Spouse current occupational status: retired Feels Safe at Home: Yes Childhood Exposure to Second-Hand Smoke: No Dental Care, Regularly: Yes Physical Activity Frequency: Does not Exercise Seatbelt Use: always Sunscreen Use: Yes Review of Systems Review of Systems: All systems reviewed & are unremarkable except as noted in HPI & below Physical Exam Constitutional: WD/WN, vitals as above Eyes: PERRL, conjunctivae normal, anicteric sclerae ENMT: external ear and nose normal, oropharynx normal Neck: trachea midline, no thyromegaly Respiratory: normal respiratory effort Cardiovascular: RRR, no murmur, no edema Gastrointestinal (Abdomen): normal bowel sounds, soft, nontender, no hepatosplenomegaly Musculoskeletal: Physical examination of the right hip reveals decreased range of motion with flexion, internal and external rotation. There is significant groin pain with forced internal rotation of the hip his leg lengths are essentially equal. Psychiatric: A+Ox3, euthymic affect Results & Data Results & Data ([facility]) Diagnostic Findings Radiographs of the right hip and pelvis demonstrate advanced osteoarthritis with joint space narrowing osteophyte formation and [id number] articulation. PG Care Time/CCT Total # of Minutes Spent Total Time Spent with Patient: Total time spent is greater than 50% in coordination of care (as documented) at patient's floor/unit and/or counseling patient: Coding Level of Care Code 97601 Initial Inpt Care Lvl 3 Diagnoses Osteoarthritis of right hip M16.11
[2020-04-29] MEDS ORDERED: GABAPENTIN 300 MG CAP PO SCH (06:00)
[2020-04-29] MEDS ORDERED: LR 500ML BOLUS, THEN 15ML/HR IV SCH (06:00)
[2020-04-29] MEDS ORDERED: LR 60ML/HR IV SCH (06:00)
[2020-04-29] MEDS ORDERED: ROPIVACAINE 0.5% HCL/PF 150 MG, BUPIVACAINE 0.5% MPF 30 ML, EPINEPHrine 30MG/30ML (OR U... INSTIL SCH (06:00)
[2020-04-29] MEDS ORDERED: ACETAMINOPHEN 500 MG TAB PO SCH (06:00)
[2020-04-29] MEDS ORDERED: dexAMETHasone 4 MG TAB PO SCH (06:00)
[2020-04-29] MEDS ORDERED: CEFAZOLIN 1000MG 1,000 MG/7.5 ML SYR IV SCH (06:00)
[2020-04-29] MEDS ORDERED: TRANEXAMIC ACID / 0.7% NACL 1,000 MG/100 ML BAG IV SCH (06:00)
[2020-04-29] MEDS ORDERED: FAMOTIDINE 20 MG TAB PO SCH (06:00)
[2020-04-29] MEDS ORDERED: TRANEXAMIC ACID 1,000 MG **IV Intra-op IV SCH (06:00)
[2020-04-29] MEDS ORDERED: BUPIVACAINE 0.5 % 5 MG/1 ML PF 10ML VIAL ONE (06:18)
[2020-04-29] MEDS ORDERED: LIDOCAINE HCL 2% 2 ML VIAL/AMP(20MG/ML) INFIL ONE (06:34)
[2020-04-29] MEDS ORDERED: fentaNYL citrate 100 MCG/2 ML VIAL ONE (06:34)
[2020-04-29] MEDS ORDERED: MIDAZOLAM HCL 1 MG/ML 2ML VIAL ONE (06:34)
[2020-04-29] MEDS ORDERED: PROPOFOL IV EMULSION 10 MG/ML 20 ML VIAL IV ONE (06:34)
--- NOTE | 2020-04-29 06:45 | History & Physical Bridge Note ---
Date of Service April 29, 2020 History & Physical Bridge Note I have examined the patient, reviewed the History & Physical and in the interval since the performance of the History & Physical I have noted the following changes of clinical significance: no changes noted
[2020-04-29] MEDS ORDERED: ORTHO JOINT ANESTHETIC ONE (06:55)
[2020-04-29] MEDS ORDERED: ROCURONIUM BROMIDE 10 MG/ML 5 ML VIAL IV ONE (07:14)
[2020-04-29] MEDS ORDERED: PHENYLEPHRINE 100MCG/ML 5ML SYR ONE (07:14)
[2020-04-29] MEDS ORDERED: PHENYLEPHRINE 100MCG/ML 5ML SYR IV PRN (07:37)
[2020-04-29] MEDS ORDERED: LABETALOL HCL IV 5 MG/ML 20ML IV PRN (07:37)
[2020-04-29] MEDS ORDERED: ePHEDrine sulfate 50 MG/ML AMP IV PRN (07:37)
[2020-04-29] MEDS ORDERED: HYDROmorphone INJ 1 MG/ML SYRINGE IV PRN (07:37)
[2020-04-29] MEDS ORDERED: ATROPINE SULFATE 0.1 MG/ML 10ML SYR IV PRN (07:37)
[2020-04-29] MEDS ORDERED: fentaNYL citrate 100 MCG/2 ML VIAL IV PRN (07:37)
[2020-04-29] MEDS ORDERED: MEPERIDINE HCL 25 MG/ML CARP/VIAL IV PRN (07:37)
[2020-04-29] MEDS ORDERED: ONDANSETRON INJ 2 MG/ML 2 ML VIAL IV PRN ×2 (07:37→09:49)
[2020-04-29] MEDS ORDERED: ePHEDrine sulfate 50 MG/ML SYR ONE (08:02)
--- NOTE | 2020-04-29 08:21 | Operative Report ---
PG Post Operative Report Pre & Post Diagnosis Operation Date: 04/29/20 07:00 Pre-Op Diagnosis: Degenerative Joint Disease Right Hip Post-Op Diagnosis: Degenerative Joint Disease Right Hip I identified the patient and participated in the time-out.: Yes Procedure Operation Date: 04/29/20 07:00 Actual Procedures p Right Anterior Total Hip Arthroplasty(Right) - Cricket Barrera DO Surgeon Cricket Barrera DO Estate Administrator Cricket Carr PAC Estimated Blood Loss 200 Findings Consistent with Post-Op Diagnosis Specimens Right femoral head Complications none Disposition Disposition: Recovery Room Indications Azalia is a pleasant 79-year-old female who is been doing with chronic increasing right hip and groin pain. X-rays and clinical examination have been diagnostic for advanced osteoarthritis of the right hip. After failing conservative treatment, she has elected to proceed with a right anterior total hip arthroplasty. I did a left hip replacement on her a year ago and she did very well with that. Description of Procedure Implants used I used a Biomet Taperloc total hip arthroplasty system with a size 8 high offset Taperloc stem, a 52 mm G7 cup with a 25mm screw, an E1 polyethylene liner, a 36 mm ceramic head with a -3 neck. Azalia arrived at the hospital for the above procedure. She was seen in the preoperative holding area and the operative extremity was identified and signed. She was given a spinal anesthetic, a preoperative antibiotic, and TXA. She was then taken back to the operating room and laid on the table in the supine position. She was given basic sedation. The operative leg was secured to a Puristst leg positioner. The hip was then prepped and draped in sterile fashion. A timeout was done and the patient and the operative extremity was properly identified. An anterior approach was used. Dissection was taken down through the fascia and the tensor muscle belly was retracted laterally and the rectus was retracted medially. The circumflex vessels were identified and ligated. The capsule was then incised and tagged for later repair. The femoral neck was then cut and the femoral head was removed. The acetabulum was exposed. Time was spent doing a complete circumferential labral release. Sequential reaming of the acetabulum up to a size 51 reamer was done. Final reamings were done under fluoroscopy to ensure appropriate version. A Biomet 52 mm G7 cup was then impacted into place. A single 25 mm screw was placed. The E1 polyethylene liner was then snapped into place. Surrounding soft tissues were then injected with 100 cc of an orthopedic pain control cocktail. The proximal femur was then exposed. Sequential broaching up to a size 8 broach was done. Off that broach a size 36 head with a -3 neck was trialed. The hip was reduced and fluoroscopic images showed anatomic alignment of the implants in acceptable length. The broach was removed. The final size 8 high offset Taperloc stem was then impacted into place. A ceramic 36 mm head with a -3 neck was then impacted onto the stem and the hip was reduced. Final fluoroscopic images showed anatomic alignment of the hip. The capsule was then closed with #1 Vicryl suture. A dilute betadyne lavage was then done for 3 minutes. The joint was then irrigated with normal saline solution. The fascia was closed with #1 PDS suture. Skin was closed with 2-0 Vicryl, parker, and a Silverlon dressing. She was then transferred to a hospital bed and taken to the post anesthesia care unit in stable condition. She tolerated the procedure well. Cricket Carr PA-C, was present for the entire procedure. He was critical for patient positioning, prepping, draping, retraction exposure, wound closure and application of sterile dressing. I attest to the content of the Intraoperative Record and any orders documented therein. Any exceptions are noted below.
[2020-04-29] MEDS ORDERED: ONDANSETRON INJ 2 MG/ML 2 ML VIAL ONE (08:23)
--- NOTE | 2020-04-29 08:55 | Fluoroscopy Report ---
FL hip RT 1V CLINICAL HISTORY: RT ANTERIOR HIP COMPARISON STUDY: None FLUOROSCOPY TIME: 28 seconds NUMBER OF FLUOROSCOPIC IMAGES: 2 FINDINGS: Anatomic alignment post right anterior total hip replacement. IMPRESSION: Image intensifier support for right anterior hip replacement. ACT 112: Negative or not required by law. The above report was generated using voice recognition software. It may contain grammatical, syntax or spelling errors. Electronically signed by: Jona James M.D. 04/29/2020 8:53 AM
--- NOTE | 2020-04-29 09:14 | XRay Report ---
SINGLE VIEW PELVIS; SINGLE VIEW RIGHT HIP CLINICAL HISTORY: Postoperative examination. FINDINGS: An AP portable view of the hips and pelvis with a crosstable lateral portable view of the r ight hip are obtained. A bipolar right hip arthroplasty is in near-anatomic alignment. A single corti alva lag screw transfixes the acetabular cup. No acute fracture is identified. There are expected post operative changes overlying the right hip including skin clips, subcutaneous gas, and soft tissue swe lling. A left hip arthroplasty is also in place. IMPRESSION: Expected postoperative findings status post right hip arthroplasty. No acute fracture is seen. ACT 112: Negative or not required by law. Electronically signed by: Adolph Martinez M.D. 04/29/2020 9:13 AM
--- NOTE | 2020-04-29 09:26 | Anesthesiology Progress Note ---
Date of Service April 29, 2020 Anesthesia Post Procedure Vital Signs Vital Signs: Temp Pulse Pulse Resp BP BP Pulse Ox 04/29/20 09:15 82 20 99/45 L 99 04/29/20 09:00 83 17 115/59 L 100 04/29/20 08:53 36.1 C L 89 18 127/49 L 99 04/29/20 06:34 76 20 168/72 H 98 04/29/20 05:37 36.8 C 78 18 188/83 H 98 Pain Intensity Right Hip: Pain Intensity: 0 Transfer of Care Handoff Completed per policy Notes Mental Status: alert / awake / arousable Patient Amnestic to Procedure: Yes Nausea / Vomiting: adequately controlled Pain: adequately controlled Airway Patency, RR, SpO2: stable & adequate BP & HR: stable & adequate Hydration State: stable & adequate Anesthetic Complications: no major complications apparent and Pt Satisfied with anesthetic care Notes: The patient had some PVCs in the OR but her vital signs remained stable. She has mostly been in sinus rhythm in PACU with occasional PVCs. Her vital signs are stable and she is awake and comfortable.
[2020-04-29] MEDS ORDERED: LORazepam 0.5 MG TAB PO PRN (09:49)
[2020-04-29] MEDS ORDERED: MAGNESIUM HYDROXIDE SUSP 30 ML UDC PO PRN (09:49)
[2020-04-29] MEDS ORDERED: bisacodyL 10 MG SUPP PR PRN (09:49)
[2020-04-29] MEDS ORDERED: NALOXONE HCL 0.4 MG/1 ML VIAL/CARP IV PRN (09:49)
[2020-04-29] MEDS ORDERED: METOCLOPRAMIDE HCL INJ 5 MG/ML 2 ML VIAL IV PRN (09:49)
[2020-04-29] MEDS ORDERED: TRAMADOL HCL 50 MG TABLET PO PRN (09:49)
[2020-04-29] MEDS ORDERED: HYDROmorphone INJ 0.5 MG/0.5 ML SYR IV PRN (09:49)
[2020-04-29] MEDS: VALSARTAN 80 MG TAB PO SCH (13:41)
[2020-04-29] MEDS: DOCUSATE SODIUM 100 MG CAP PO SCH ×2 (13:41→21:32)
[2020-04-29] MEDS: ASPIRIN 81 MG ECTAB PO SCH ×2 (13:42→21:33)
[2020-04-29] MEDS: MULTIVITAMIN TAB PO SCH (13:42)
[2020-04-29] MEDS: ACETAMINOPHEN 500 MG TAB PO SCH ×2 (13:43→21:32)
[2020-04-29] MEDS: KETOROLAC TROMETHAMINE 15 MG/ML VIAL IV SCH ×3 (13:45→23:31)
[2020-04-29] MEDS: SODIUM CHLORIDE 0.9% 1000ML 1,000 ML IV SCH ×2 (13:46→23:32)
[2020-04-29] MEDS: CEFAZOLIN 2000MG 2,000 MG/15 ML SYR IV SCH ×2 (18:03→23:31)
[2020-04-29] MEDS ORDERED: SIMVASTATIN 20 MG TAB PO SCH (21:00)
[2020-04-29] MEDS ORDERED: SENNA 8.6 MG TAB PO SCH (21:00)
[2020-04-30] MEDS: ACETAMINOPHEN 500 MG TAB PO SCH (05:17)
[2020-04-30] MEDS: KETOROLAC TROMETHAMINE 15 MG/ML VIAL IV SCH (05:18)
[2020-04-30 06:11] LABS: Hematocrit (blood only) 30.2 % (37-47); Hemoglobin 9.9 g/dL (12.0-16.0); Immature Granulocytes # (auto) 0.02 K/uL (0.00-0.02); Immature Granulocytes % (auto) 0.2 %; Lymphocytes # (auto) 1.46 K/uL (1.2-3.4); Lymphocytes % (auto) 13.1 %; Mean Corpuscular Hemoglobin 28.8 pg (25-34); Mean Corpuscular Hgb Conc 32.8 g/dL (32-36); Mean Corpuscular Volume 87.8 fL (80-100); Mean Platelet Volume 8.3 fL (7.4-10.4); Monocytes # (auto) 1.01 K/uL (0.11-0.59); Monocytes % (auto) 9.1 %; Neutrophils # (auto) 8.66 K/uL (1.4-6.5); Neutrophils % (auto) 77.6 %; Platelet Count 270 K/uL (130-400); RDW Standard Deviation 44.8 fL (36.4-46.3); Red Blood Count 3.44 M/uL (4.2-5.4); White Blood Count 11.15 K/uL (4.8-10.8)
[2020-04-30 06:47] LABS: BUN Creatinine Ratio 32.1 (10-20); Calcium 8.1 mg/dl (8.5-10.1); Creatinine Clr Calc Pharmacy 59.9 ml/min; Est GFR (African American) 97.7; Est GFR (Non-African American) 84.3; Potassium 4.4 mmol/L (3.5-5.1)
--- NOTE | 2020-04-30 07:58 | Orthopedic Progress Note ---
Date of Service April 30, 2020 Assessment & Plan (1) Status post right hip replacement: Overall she is doing very well. She is not having much pain in the right hip. She will will be seen by physical therapy this morning for ambulation and range of motion exercises. I encouraged fluid intakes throughout the day today. Hopefully she will feel little better and her blood pressure returned to normal. As long as it does, she can be discharged home later today. She will follow with orthopedics in 2 weeks. Present on Admission?: Yes Andrzej Vieyra was seen and examined at bedside this morning. Overall she is doing fairly well. She is not having too much pain in the right hip. She is a little bit hypotensive but she says she feels okay. She was able to ambulate to the bathroom last night. She has no complaints. Physical Exam Musculoskeletal: On physical examination of the right hip, the Silverlon dressing is clean and dry. Her leg lengths are equal. She has active dorsiflexion and plantarflexion of her right ankle. Results & Data ([facility]) Vital Signs (Past 12 Hours) Vital Signs Temp Pulse Resp BP Pulse Ox 04/30/20 07:26 36.8 C 67 16 95/54 L 92 04/30/20 03:34 36.6 C 84 20 149/71 H 98 04/30/20 00:04 36.8 C 64 14 109/62 96 04/29/20 20:01 36.4 C L 67 16 127/69 94 Laboratory Results H & H 04/13/20 04/30/20 Range/Units 10:30 05:47 Hgb 12.7 9.9 L (12.0-16.0) g/dL Hct 37.8 30.2 L (37-47) % Coagulation 04/13/20 Range/Units 10:30 INR 1.0 (0.9-1.1) Diagnostic Findings Postoperative x-rays of the right hip show the prosthesis to be in anatomic alignment without any evidence of fracture, dislocation, or loosening. PG Care Time/CCT Total # of Minutes Spent Total Time Spent with Patient: Total time spent is greater than 50% in coordination of care (as documented) at patient's floor/unit and/or counseling patient: Coding Level of Care Code None Diagnoses Status post right hip replacement Z96.641
[2020-04-30] MEDS ORDERED: dexAMETHasone 4 MG TAB PO SCH (08:00)
--- NOTE | 2020-04-30 08:01 | Discharge Summary ---
Date of Service April 30, 2020 Admission HPI Per Admitting Provider Azalia is a pleasant 79-year-old female who is been dealing with chronic increasing right hip and groin pain. X-rays and clinical examination have been diagnostic for advanced osteoarthritis of the right hip. After failing conservative treatment, she has elected to proceed with a right anterior total hip arthroplasty. She does have a history of a left hip replacement done a year ago in May 2019. She has done very well with that. Principal Diagnosis Right hip replacement Discharge Data Allergies Allergy/AdvReac Type Severity Reaction Status Date / Time prednisone AdvReac Intermediate hyperactivi Verified 04/29/20 05:44 ty erythromycin base AdvReac Mild GI symptoms Verified 04/29/20 05:44 Consultations 04/30/20 08:00 Consult Case Management - Discharge Planning Routine Procedures Performed Operation Date: 04/29/20 07:00 Actual Procedures p Right Anterior Total Hip Arthroplasty, Uncemented(Right) - Cricket Barrera DO Ordered Studies 04/29/20 07:00 FL fluoroscopy <1hr Routine FL hip RT 1V Routine Hospital Course (1) Status post right hip replacement: On April 29, 2020 Miah arrived at [facility] and underwent a right anterior total hip arthroplasty without complication. She had a general anesthetic. Postoperatively she was started on aspirin for DVT prophylaxis and transferred to the general orthopedic floors. Her hospital course was uneventful. On postop day #1 her H&H was stable and her pain was well controlled. She was able to participate well with physical therapy doing ambulation and range of motion exercises. She was a little bit hypotensive but she began feeling better throughout the day. She was then discharged home. She will follow-up with orthopedics in 2 weeks. Total Time Total Time Spent Total Time Spent (In Minutes): 20 Discharge Plan Discharge Items Patient Disposition: Home - Home Health Services Reason For Visit: Degenerative Joint Disease Right Hip Discharge Diagnosis: Right hip replacement Activity: As commented below Non-emergency contact: Surgeon Call non-emergency contact if: your wound has increased redness and your wound has increased drainage Follow-up/Referrals: ProVitaly MD [Primary Care Provider] - Diet: Regular Addtl Attending Provider Instructions: Activity and Therapy Recommendations: * If you are using [facility] then therapy will be provided at your home until they feel you have accomplished all of your goals. * If you are using [facility] then Physical Therapy will be provided until they feel you are ready to start Outpatient Physical Therapy. * If you are not using home therapy then Outpatient Physical Therapy should s tart about 3-5 days from your day of surgery. Therapy will last about 6-10 weeks * You were shown a series of exercises in the hospital. Do these exercises three times each day including the exercises you were shown in physical therapy. * Get up and walk several times each day.~ For the first four weeks, try not to stand or walk for more than one hour at a time. If you do stand or walk for more than one hour, you will not hurt anything, but your leg will likely swell.~~ * As you feel comfortable, you may change from the walker or crutches to a cane and~then to independent walking. Medications: * Narcotic You will likely be sent home from the hospital with a prescription for the narcotic pain medication that worked best throughout your stay. * Aspirin Most patients will be required to take Aspirin 81mg twice a day for 6 weeks after surgery. This is obtained [id number] and a prescription is not necessary. * Other medications may be prescribed for specific circumstances. If you have any questions, please call the office at . * Resume previous home medications unless otherwise instructed TEDs/Elastic Stockings: The white elastic stockings help limit swelling and prevent blood clots from forming in your legs. The more you wear them, the more they work. Wear them for six weeks. Dressing Care: Leave the Silverlon dressing on for 7 days. After 7 days you may remove the dressing. If the incision is not draining then you may leave the parker open to air. If there is a little bit of drainage or if the parker are getting stuck on your clothing then cover the incision with a dry dressing. The parker will be removed at your 2 week follow-up appointment. Showering: You may shower immediately after the surgery with the Silverlon dressing in place. Do not scrub or soak the dressing. After 7 days you may remove dressing and shower with the parker exposed. Let the soapy shower water run over the parker and pat them dry. Do not scrub or soak the incision. Things To Watch For: * Drainage from the incision site that occurs more than one week after your surgery. * Increased redness at the incision site. * Fever above 102 degrees Fahrenheit. * Unusual chest pain or shortness of breath. * Call [facility] at with any of the above problems Follow-Up Visit: Follow-up with Dr. Barrera's PA (Cricket Carr) 2-3 weeks after your day of surgery. He will remove your parker and answer any questions. If you have any additional questions or concerns, Dr Barrera is usually in the office at the same time and will be available An appointment was probably scheduled when you signed-up for surgery in the office. If you have any questions call Office Instructions: More detailed instructions as well as Frequently Asked Questions were provided in a folder by our office when you signed-up for surgery. Please review these instructions when you get home. If you have any further questions or concerns, please feel free to call the office at [phone] Pending Studies at Discharge: No Stand-Alone Forms: My [facility], Smoking Cessation Medications and DC Order Prescriptions: New tramadol 50 mg Tablet 50 mg PO Q4H PRN (Reason: pain) Qty: 20 RF: 0 Continued duloxetine [Cymbalta] 30 mg capsule,delayed release(DR/EC) 30 mg PO QAM Qty: 90 RF: 1 valsartan 80 mg tablet 80 mg PO DAILY Qty: 60 RF: 2 simvastatin [Zocor] 20 mg tablet 20 mg PO QPM Qty: 90 RF: 3 lorazepam 0.5 mg tablet 0.5 mg PO DAILY PRN (Reason: anxiety) Qty: 30 RF: 0 cholecalciferol (vitamin D3) 25 mcg (1,000 unit) capsule 1,000 units PO BID RF: 0 ascorbic acid (vitamin C) [Vitamin C] 1,000 mg Tablet 1 g PO QAM RF: 0 acetaminophen [Acetaminophen Extra Strength] 500 mg Tablet 1,000 mg PO Q6H PRN (Reason: Pain) RF: 0 Changed aspirin 81 mg tablet,delayed release (DR/EC) 81 mg PO BID 42 Days Qty: 0 RF: 0 Discharge Orders: Discharge Order (Routine); Ordered 04/30/20 Ordered By: Cricket Barrera Admission Data Admit Date/Time: 04/29/20 08:53 Attending Provider: Cricket Barrera Admit Provider: Cricket Barrera Primary Care Provider: Vitaly Armenta Coding Level of Care Code D/C Day Management <30 mins Diagnoses Status post right hip replacement Z96.641
[2020-04-30] MEDS: MULTIVITAMIN TAB PO SCH (09:36)
[2020-04-30] MEDS: ASPIRIN 81 MG ECTAB PO SCH (09:38)
[2020-04-30] MEDS: DOCUSATE SODIUM 100 MG CAP PO SCH (09:38)
[2020-04-30] MEDS: VALSARTAN 80 MG TAB PO SCH (09:38)
[2020-05-02] MEDS ORDERED: DULOXETINE HCL 30 MG CAP PO SCH (09:00)
== END 2020-04-30 10:07 | disposition home health service (06) ==
LOC: ASU 05:17 → 3E 05:17